=== PATIENT | male | born 1950 | race Caucasian/White ===

== ENCOUNTER 2016-09-27 12:59 | Emergency (ER) | payer OTHER, MEDICARE ==
[2016-09-27 13:18] VITALS: BP 155/78
--- NOTE | 2016-09-27 13:41 | ERNOTE ---
Medical Problem HPI - Narrative Date of Service: 09/27/16 - General Chief Complaint: Laceration Time Seen by Provider: 09/27/16 13:30 Source: patient, RN notes reviewed Exam Limitations: no limitations - Immun/Allergies/Home Medications Immunizations: IMMUNIZATION HX Immunizations Up to Date Yes History of Influenza Vaccine Yes Hx Pneumococcal Vaccination Yes Allergies/Adverse Reactions: Allergies lisinopril Allergy (Verified 09/27/16 13:18) Home Medications: HOME MEDICATIONS Acetaminophen [Tylenol] 650 mg PO Q4H PRN 05/14/15 [Last Taken Unknown] Cetirizine HCl [Wal-Zyr] 10 mg PO DAILY 05/14/15 [Last Taken Unknown] Docusate Sodium [Colace] 100 mg PO DAILY 05/14/15 [Last Taken Unknown] Hydrochlorothiazide [Hydrodiuril] 25 mg PO DAILY #30 tab 05/14/15 [Last Taken Unknown] Losartan Potassium [Cozaar] 100 mg PO DAILY 05/14/15 [Last Taken Unknown] Metoprolol Tartrate [Lopressor] 50 mg PO DAILY 05/14/15 [Last Taken Unknown] Pravastatin Sodium 40 mg PO DAILY 05/14/15 [Last Taken Unknown] Venlafaxine HCl [Effexor Xr] 150 mg PO DAILY 05/14/15 [Last Taken Unknown] - History of Present History Narrative: 65 y/o male ambulatory to the ED for a laceration to his left lower anterior leg. 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 He reports having difficulty controlling the bleeding, but he applied a pressure dressing and it has subsided. Date (Duration): 09/27/16 Time (Timing): 12:00 Review of Systems - Review of Systems Constitutional: Present: no symptoms reported EYE: Present: no symptoms reported ENT: Present: no symptoms reported Respiratory: Present: no symptoms reported Cardiology: Present: no symptoms reported Gastrointestinal/Abdominal: Present: no symptoms reported Genitourinary: Present: no symptoms reported Musculoskeletal: Absent: joint pain, joint swelling Neurological: Absent: weakness, numbness, tingling Endocrine: Present: no symptoms reported Hematologic/Lymphatic: Present: easy bruising, easy bleeding Psych: Present: no symptoms reported - Patient's Past Medical History Patient History - Medical: History Unknown Patient History - Cardiac/Respiratory: Hypertension, Hyperlipidemia Patient History - Cancer: No Hx of Cancer Patient History - Surgical Procedures: Noncontributory Patient History - Other: None - Family History Mother Family History - Medical: , Alcohol Abuse - Social History Living Situations: home Abuse History: No History of abuse Psych History: Hx of Anxiety, Hx of Depression Smoking Status: Current every day smoker Cigarettes Packs Per Day: 1 Alcohol Use: heavy Drug Use: none - Immunizations Immunizations Up to Date: Yes Hx Pneumococcal Vaccination: Yes History of Influenza Vaccine: Yes Physical Exam - Physical Exam General Appearance: Present: wd/wn, alert, no apparent distress Respiratory: Present: no respiratory distress, no accessory muscle use Cardiovascular/Chest: Present: normal peripheral pulses Peripheral Pulses: N=norm/S=strong/W=weak/B=bound/A=absent: Dorsalis-pedis (L): Strong Extremity Exam: Present: normal range of motion, no edema Neurological Exam: Present: alert, oriented, normal mood/affect, no motor/ sensory deficits Skin Exam: Present: normal color, warm/dry, other - small laceration (<1 cm) to left anterior lower leg, no longer bleeding ED Progress - Vital Signs Patient's Vital Signs:: I have reviewed the patient's vital signs. Vital Signs: Vital Signs 09/27/16 13:13 Temperature 36.6 C Pulse Rate 65 Respiratory 12 Rate Blood Pressure 155/78 O2 Sat by Pulse 96 Oximetry - Progress/Reassessment Chief Complaint: Laceration Progress:: Improved Procedures Left Anterior Distal Leg Length of Repair/Wound (cm): 0.5 Wound's Depth/Shape: irregular Wound Explored: no foreign body Wound Intervention: irrigated w/saline Distal NVT: neuro/vasc intact Wound Repaired With: no closure required Wound Dressing: sterile dressing applied Complications: Pt orion procedure well Departure - Departure Clinical Impression: Laceration Disposition: Home self-care Condition: Good Instructions: Laceration Care, Adult, [id number] Additional Instructions: Keep wound clean, apply antibiotic ointment and bandage as needed
--- OUTSIDE RECORDS SUMMARY | 2016-09-27 13:51 | XMS REPORT | Continuity of Care Document ---
:1950 Author Organization [facility] [place] [address] Care Team Providers Name Role Phone Unavailable Primary Care Provider Unavailable Source Comments This disclosure is being made pursuant to the [employer] [place] program and maynot contain all information available regarding this patient.[facility] Active Allergies and Adverse Reactions Not on File Current Medications Be aware that medications may not be up to date as of this document. Alwaysverify current medications with the patient. Not on file Active Problems Not on file Social History Tobacco Use Types Packs/Day Years Used Date Never Assessed Plan of Care Health Maintenance Due Date Last Done Comments Retired-Pertussis Vaccine Adult 1968 Retired-Tetanus Vaccine Adult 1969 Colonoscopy 10/19/1999 Well Adult Visit 10/19/1999 Zoster Vaccine 60+ 2009 Retired-Pneumococcal 23 Vaccine-65+ yo 2014 Retired-INFLUENZA VACCINE 12/17/2014 Results from Last 3 Months Not on file
--- OUTSIDE RECORDS SUMMARY | 2016-09-27 13:51 | XMS REPORT | Continuity of Care Document ---
:1950 Author Organization [facility] ([facility]) Address [address] [place] [address] Phone [phone] Care Team Providers Name Role Phone [facility] Primary Care Provider [phone] Source Comments This disclosure is being made pursuant to the Care Everywhere program, applicable federal and state laws, and may not contain all informaitonavailable regarding this patient.[facility] ([facility]) Active Allergies and Adverse Reactions Allergen Noted Date Severity Reactions Comments Lisinopril 07/25/2012 Angioedema Current Medications Prescription Sig. Disp. Refills Start Date End Date Status tadalafil (CIALIS) 20 Take 1 Tab by mouth 6 Tab 11 06/21/2012 Active mg tablet as needed. Indications: ERECTILE DYSFUNCTION PARoxetine 10 mg Take 1 Tab by mouth 30 Tab 11 07/23/2012 Active tablet daily. Indications: GENERALIZED ANXIETY DISORDER predniSONE 20 mg Take 2 Tabs by mouth 10 Tab 0 07/23/2012 Active tablet daily. Indications: BRONCHIAL ASTHMA ranitidine (ZANTAC) Take 1 Tab by mouth 2 14 Tab 0 07/23/2012 Active 150 mg tablet times daily. Indications: PREVENTION OF STRESS ULCER, allergic reaction Cetirizine (ZYRTEC) 10 Take 10 mg by mouth 7 Cap 0 07/23/2012 Active mg cap once. Indications: URTICARIA HYDROcodone-acetaminop Take 1 Tab by mouth 20 Tab 0 07/25/2012 Active hen 5-500 mg per every 4 hours as tablet needed. Indications: PAIN metoPROLol tartrate PO Active Active Problems Problem Noted Date Angioedema 07/23/2012 Obstructive sleep apnea 02/14/2012 Nocturia 01/24/2012 Malaise and fatigue 01/24/2012 Depression 01/24/2012 HTN (hypertension) 01/24/2012 Hyperlipidemia 01/24/2012 Polyphagia 01/24/2012 Polydipsia 01/24/2012 Social History Tobacco Use Types Packs/Day Years Used Date Current Every Day Smoker Cigarettes 1 Smokeless Tobacco: Never Used Alcohol Use Drinks/Week oz/Week Comments No Last Filed Vital Signs Vital Sign Reading Time Taken Blood Pressure 146/88 11/04/2014 8:52 AM CDT Pulse 65 11/04/2014 8:52 AM CDT Temperature 37 C (98.6 F) 11/04/2014 8:52 AM CDT Respiratory Rate 20 07/25/2012 4:53 PM CDT Height 1.727 m (5' 7.99") 11/04/2014 8:52 AM CDT Weight 112.719 kg (248 lb 8 oz) 11/04/2014 8:52 AM CDT Body Mass Index 37.79 11/04/2014 8:52 AM CDT Oxygen Saturation 95% 07/23/2012 11:13 AM CDT Plan of Care Health Maintenance Due Date Last Done Comments HCV Screening 1950 Hepatitis B Vaccine (1 of 3 - Primary Series) 1950 Tdap Vaccine 1960 Td Vaccine 10/19/1967 Colonoscopy 1999 Prostate Cancer Screening 10/19/1999 Zoster Vaccine 2009 Pneumococcal Vaccine (1 of 2 - PCV13) 2014 Influenza Vaccine: Seasonal (#1) 11/17/2015 Lipid Disorder Screening 01/07/2017 01/08/2012 Results from Last 3 Months Not on file
== END 2016-09-27 13:47 | disposition home or self-care (01) ==
LOC: ER 12:59
DX: S81.812A Laceration without foreign body, left lower leg, initial encounter (principal); X58.XXXA Exposure to other specified factors, initial encounter; Y93.89 Activity, other specified; Y92.9 Unspecified place or not applicable; Y99.9 Unspecified external cause status; I10 Essential (primary) hypertension; E78.5 Hyperlipidemia, unspecified